=== PATIENT | male | born 1945 | race Caucasian/White ===

== ENCOUNTER → 2020-01-05 | Outpatient (CLI) | payer MEDICARE | END | disposition home or self-care (01) | LOC: LAB SHORT 15:24 → LAB EV 15:24 | DX: R33.9 Retention of urine, unspecified (principal) | CPT/HCPCS: 87077; 87086; 87186 ==

== ENCOUNTER → 2021-03-06 | Outpatient (CLI) | payer MEDICARE | LOC: LAB 14:33 → LAB SHORT 14:33 | DX: D48.5 Neoplasm of uncertain behavior of skin (principal) | CPT/HCPCS: 88305 ==

== ENCOUNTER → 2021-09-18 | Outpatient (CLI) | payer MEDICARE | END | disposition home or self-care (01) | LOC: LAB 11:38 → LAB SHORT 11:38 | DX: L57.0 Actinic keratosis (principal) | CPT/HCPCS: 88305 ==

== ENCOUNTER → 2021-11-26 | Outpatient (CLI) | payer MEDICARE | END | disposition home or self-care (01) | LOC: LAB SHORT 14:45 | DX: L08.0 Pyoderma (principal) | CPT/HCPCS: 87070; 87205 ==

== ENCOUNTER → 2022-01-28 | Outpatient (CLI) | payer MEDICARE, OTHER | END | disposition home or self-care (01) | LOC: LAB SHORT 11:32 → PLD 11:32 | DX: L73.9 Follicular disorder, unspecified (principal) | CPT/HCPCS: 88305; 88312 ==

== ENCOUNTER 2022-06-17 03:59 | Emergency (ER) | payer MEDICARE, OTHER ==
[~2022-06-17] VITALS: Ht 172.7 cm; Wt 65.8 kg
[2022-06-17] MEDS ORDERED: TAMS.4ER PO (05:17)
[2022-06-17 05:41] LABS: Source, Urine Foley catheter
[2022-06-17 05:44] LABS: Appearance, Urine Clear (Clear); Bilirubin, Urine Neg (Neg); Blood, Urine 1+ (Neg); Color, Urine Yellow (P-Yellow); Glucose Qualitative, Urine Neg (Neg); Ketones, Urine Neg (Neg); Leukocyte Esterase, Urine Neg (Neg); Nitrite, Urine Neg (Neg); Protein, Urine Neg (Neg); Specific Gravity, Urine 1.015 (1.003-1.022); Urobilinogen, Urine NORM (Normal)
[2022-06-17 06:09] LABS: Bacteria Rare /hpf; Mucus Light (0-Heavy); Squamous Epithelial Cells Not Seen /hpf (Few); White Blood Cells, Urine 0-2 /hpf (0-5)
== END 2022-06-17 06:12 | disposition home or self-care (01) ==
LOC: ER 03:59
PROVIDERS: Emergency Medicine
DX: R33.9 Retention of urine, unspecified (principal); N32.89 Other specified disorders of bladder; Z79.899 Other long term (current) drug therapy
CPT/HCPCS: 51702; 51798; 81001

== ENCOUNTER 2022-07-13 07:57 | Emergency (ER) | payer MEDICARE, OTHER ==
[~2022-07-13] VITALS: Ht 172.7 cm; Wt 65.8 kg
[~2022-07-13 07:57] MED LIST: TAMS.4ER PO
[2022-07-13 08:23] LABS: Source, Urine Foley catheter
[2022-07-13 08:31] LABS: Bilirubin, Urine Neg (Neg); Blood, Urine Neg (Neg); Glucose Qualitative, Urine Neg (Neg); Ketones, Urine Neg (Neg); Leukocyte Esterase, Urine Neg (Neg); Nitrite, Urine Neg (Neg); Protein, Urine Neg (Neg); Urobilinogen, Urine NORM (Normal)
[2022-07-13 08:38] LABS: Appearance, Urine Clear (Clear); Color, Urine Yellow (P-Yellow)
[2022-07-13] MEDS ORDERED: FINA5 PO (08:52)
== END 2022-07-13 09:12 | disposition home or self-care (01) ==
LOC: ER 07:57
PROVIDERS: Physician Assistant
DX: N40.1 Benign prostatic hyperplasia with lower urinary tract symptoms (principal); R33.8 Other retention of urine; Z79.899 Other long term (current) drug therapy
CPT/HCPCS: 51702; 51798; 81003; 99283-25

== ENCOUNTER → 2022-12-11 | Outpatient (CLI) | payer MEDICARE, OTHER ==
[~2022-12-11] MED LIST changes: +FINA5 PO
== END | disposition home or self-care (01) ==
LOC: LAB SHORT 11:28 → PLD 11:28
DX: D48.5 Neoplasm of uncertain behavior of skin (principal)
CPT/HCPCS: 88305

== ENCOUNTER 2023-04-24 11:50 | Day surgery (SDC) | payer MEDICARE, OTHER ==
[~2023-04-24] VITALS: Ht 172.7 cm; Wt 63.8 kg
[2023-04-24] MEDS ORDERED: TIMO.25OPS RIGHTEYE (12:17)
--- NOTE | 2023-04-24 12:23 | NUR ---
04/24/23 1223 Sandra Garcai AT [address] AT 1220
[2023-04-24 13:27] VITALS: BP 127/81
--- NOTE | 2023-04-24 13:27 | NUR ---
04/24/23 1327 BI ROBERTSON PT DENIES PAIN
== END 2023-04-24 13:42 | disposition home or self-care (01) ==
LOC: ORSCSDS 11:50
PROVIDERS: Ophthalmology
PROC: 08RJ3JZ Replacement of Right Lens with Synthetic Substitute, Percutaneous Approach (ICD-10-PCS; principal; 2023-04-24 13:00)
DX: H25.13 Age-related nuclear cataract, bilateral (principal); H52.201 Unspecified astigmatism, right eye; N40.0 Benign prostatic hyperplasia without lower urinary tract symptoms
CPT/HCPCS: J2250; J3010; J3301; J7040; V2632

== ENCOUNTER → 2023-08-14 | Outpatient (CLI) | payer MEDICARE, OTHER ==
[~2023-08-14] MED LIST changes: +ERGO400; +MIRALAX17 GM; +TIMO.25OPS RIGHTEYE; +Vitamin B-12100 MCG PO; +ZINC15 PO
== END | disposition home or self-care (01) ==
LOC: PLD 16:37 → LAB SHORT 16:37
DX: C44.229 Squamous cell carcinoma of skin of left ear and external auricular canal (principal)
CPT/HCPCS: 88305

== ENCOUNTER → 2023-09-10 | Outpatient (CLI) | payer MEDICARE, OTHER | LOC: LAB 08:37 → LAB SHORT 08:37 | DX: C44.229 Squamous cell carcinoma of skin of left ear and external auricular canal (principal) | CPT/HCPCS: 88305 ==

== ENCOUNTER 2025-01-03 08:42 | Day surgery (SDC) | payer MEDICARE, OTHER ==
[~2025-01-03] VITALS: Ht 162.6 cm; Wt 64.1 kg
[~2025-01-03 08:42] MED LIST changes: +Lactated Ringer's 1,000 ML IV ONE; +propofoL 50 ML IV ONE
[2025-01-03] MEDS ORDERED: Lactated Ringer's 1,000 ML IV ONE (10:22)
[2025-01-03] MEDS ORDERED: propofoL 50 ML IV ONE (11:28)
[2025-01-03 12:26] VITALS: BP 118/65
== END 2025-01-03 12:18 | disposition home or self-care (01) ==
LOC: ORSCSDS 08:42
PROVIDERS: Internal Medicine Gastroenterology
PROC: 3E0H8KZ Introduction of Other Diagnostic Substance into Lower GI, Via Natural or Artificial Opening Endoscopic (ICD-10-PCS; principal; 2025-01-03 10:15)
PROC: 0DBH8ZX Excision of Cecum, Via Natural or Artificial Opening Endoscopic, Diagnostic (ICD-10-PCS; principal; 2025-01-03 10:15)
DX: Z12.11 Encounter for screening for malignant neoplasm of colon (principal); D12.0 Benign neoplasm of cecum; Z86.0101 Personal history of adenomatous and serrated colon polyps; C91.11 Chronic lymphocytic leukemia of B-cell type in remission; E78.5 Hyperlipidemia, unspecified
CPT/HCPCS: 88305; J2704; J7120

== ENCOUNTER 2025-08-08 07:31 | Day surgery (SDC) | payer MEDICARE, OTHER ==
[~2025-08-08] VITALS: Ht 172.7 cm; Wt 64.5 kg
[~2025-08-08 07:31] MED LIST changes: -Lactated Ringer's 1,000 ML IV ONE; -propofoL 50 ML IV ONE
[2025-08-08] MEDS ORDERED: LUTEIN-ZEAXANT1 EAC3 (08:01)
[2025-08-08 10:03] VITALS: BP 113/73
== END 2025-08-08 10:18 | disposition home or self-care (01) ==
LOC: ORSCSDS 07:31
PROVIDERS: Internal Medicine Gastroenterology
PROC: 0DBH8ZX Excision of Cecum, Via Natural or Artificial Opening Endoscopic, Diagnostic (ICD-10-PCS; principal; 2025-08-08 09:00)
DX: Z09 Encounter for follow-up examination after completed treatment for conditions other than malignant neoplasm (principal); D12.0 Benign neoplasm of cecum; Z86.0101 Personal history of adenomatous and serrated colon polyps; E78.5 Hyperlipidemia, unspecified; Z85.6 Personal history of leukemia; Z79.899 Other long term (current) drug therapy
CPT/HCPCS: 88305; J2704; J7120